=== PATIENT | female | born 1995 | race Asian ===

== ENCOUNTER 2017-06-25 23:02 | Outpatient (CLI) | payer BC ==
[~2017-06-25] VITALS: Ht 152.4 cm; Wt 60.3 kg
[2017-06-25 23:20] VITALS: BP 116/78; PULSE 84; RESP 18
[2017-06-25] MEDS ORDERED: PRENAT PO (23:22)
[2017-06-25] MEDS ORDERED: ACETAMINOPHEN 500 MG TAB PO ONE (23:57)
[2017-06-26 00:25] LABS: ADD UMIC NO; UR ASCORBIC ACID NEGATIVE (NEGATIVE); UR BILIRUBIN (Dip) NEGATIVE (NEGATIVE); UR BLOOD (Dip) NEGATIVE (NEGATIVE); UR CLARITY CLEAR (CLEAR); UR COLOR COLORLESS (YELLOW); UR GLUCOSE (Dip) NEGATIVE (NEGATIVE); UR KETONES (Dip) NEGATIVE (NEGATIVE); UR LEUKOCYTE ESTERASE (Dip) NEGATIVE Leu/ul (NEGATIVE); UR NITRITE (Dip) NEGATIVE (NEGATIVE); UR SPECIFIC GRAVITY (Dip) 1.004 (1.003-1.030); UR TOTAL PROTEIN (Dip) NEGATIVE (NEGATIVE); UR UROBILINOGEN (Dip) NEGATIVE (NEGATIVE)
--- NOTE | 2017-06-26 01:09 | RADRPT ---
PROCEDURE: Limited OB ultrasound CLINICAL INDICATION: Back pain. TECHNIQUE: Sonographic evaluation to assess the cervical length was performed. Transabdominal and transvaginal imaging of the uterus was performed. COMPARISON: None. FINDINGS: A single live intrauterine in breech presentation, head maternal left is identified. The f etal heart rate measures 146 bpm. The cervix is closed, measuring 3.2 cm in length. There is an ante rior placenta, grade 0-1. IMPRESSION: 1. Closed cervix measuring 3.2 cm. RPTAT: HTAR .Samuel Gutierrez MD, MD Date Time Electronically viewed and signed by .Samuel Gutierrez MD, on 06/26/2017 01:09 .R/
--- NOTE | 2017-06-26 02:13 | PN ---
Triage Information Date/Time 06/26/17 Weeks of Gestation 23w6d : 1 Para: 0 Diabetes: none Hypertention: none Additional information constant backpain since 1800 06/25/17 Objective Vital Signs Date Time Temp Pulse Resp B/P Pulse Ox O2 Delivery O2 Flow Rate FiO2 06/25/17 23:20 98.1 84 18 116/78 Room Air Heart Rate: 140's Contractions: None Results/Medications Results 24 hrs Laboratory Tests Test 06/25/17 23:30 Urine Color COLORLESS Urine Clarity CLEAR Urine pH 7.0 Urine Specific [place] 1.004 Urine Ketones NEGATIVE Urine Nitrite NEGATIVE Urine Bilirubin NEGATIVE Urine Urobilinogen NEGATIVE Urine Leukocyte Esterase NEGATIVE Urine Hemoglobin NEGATIVE Urine Glucose NEGATIVE Urine Total Protein NEGATIVE Medications tylenol Imaging Results CVL3.2 Breech PLacenta ant CX closed Assessment/Plan IUP 23w6d backahe resolved plan discharge home with instructions which positions and activities may relieve backahe f/u at clinic [facility] KENNEY WALLACE MD Jun 26, 2017 02:13
--- NOTE | 2017-06-26 06:18 | TRIAGE ---
OB Triage Datetime Report Generated by CPN: 06/26/2017 06:17 Datetime: 06/26/2017 01:57 Stage of : OB Triage Datetime: 06/26/2017 01:30 Stage of : OB Triage Datetime: 06/26/2017 00:50 Stage of : OB Triage FHR Baseline Changes: No Baseline Change Variability: Moderate 6-25 bpm Accelerations: 15X15 Datetime: 06/26/2017 00:00 Labor Evaluation Frequency: none Monitor Mode: External Pattern: Normal: <= 5 Contractions in 10 Minutes Resting Tone [place]: Relaxed Heart Rate FHR Baseline Rate: 145 Monitor Mode: External US FHR Baseline Changes: No Baseline Change Accelerations: 15X15 Decelerations: None Category: Category I Datetime: 06/25/2017 23:40 Stage of : OB Triage Heart Rate FHR Baseline Rate: 150 Monitor Mode: External US FHR Baseline Changes: No Baseline Change Variability: Moderate 6-25 bpm Decelerations: Variable Category: Category II Datetime: 06/25/2017 23:14 Time of Arrival: 06/25/2017 22:56 EGA: 23.5 Arrived By: Wheelchair Arrived From: Home Chief Complaint: c/o back pain beg 1800 Movement: Present Contractions: Denies/Absent Rupture of Membranes: Denies Vaginal Bleeding: None Vaginal Discharge: Denies Recent Sexual Intercouse: Denies Abdominal Trauma: Not Applicable Patient Complaints: Back Pain Time Provider Notified: 06/25/2017 23:40 Provider Notified: Dr Doe Initial Plan: EFM, CVL, UA, TYLENOL Datetime: 06/25/2017 23:09 Stage of : OB Triage Maternal Assessment Level of Consciousness: Fully Conscious Headache: Denies Blurred Vision: No Respiratory Effort: Unlabored Nausea/Vomiting: Denies RUQ Epigastric Pain: Denies Facial Edema: None Labor Evaluation Frequency: placed Monitor Mode: External Resting Tone [place]: Relaxed Monitor Mode: External US Comments: FHT 140 Pain Assessment Pain Scale: 8 Pain Presence: Constant Pain Type: Pressure; Ache Pain Location: Back
== END 2017-06-26 02:05 | disposition home or self-care (01) ==
LOC: OBT 23:02 → L-D 23:04 → OBT 06-26 02:05
PROVIDERS: ATTEND Obstetrics & Gynecology
DX: O26.892 Other specified pregnancy related conditions, second trimester (principal); Z3A.23 23 weeks gestation of pregnancy; M54.9 Dorsalgia, unspecified
CPT/HCPCS: 76817; 81003; G0463

== ENCOUNTER 2017-09-19 02:52 | Inpatient (IN) | payer BC ==
[~2017-09-19] VITALS: Ht 152.4 cm; Wt 65.2 kg
[~2017-09-19 02:52] MED LIST: PRENAT PO
[2017-09-19 03:12] VITALS: Ht 152.4 cm; Wt 65.2 kg
[2017-09-19 03:13] VITALS: BP 134/84; PULSE 72; RESP 18
[2017-09-19] MEDS ORDERED: TERBUTALINE 1 ML ONE (03:31)
[2017-09-19] MEDS: TERBUTALINE 1 MG/ML INJ SC SCH ×2 (03:43→04:16)
[2017-09-19] MEDS ORDERED: LACTATED RINGER'S 1,000 ML IV ONE ×2 (03:45→08:47)
[2017-09-19] MEDS ORDERED: ACETAMINOPHEN 500 MG TAB PO ONE (05:09)
[2017-09-19 05:38] LABS: ADD UMIC YES; UR ASCORBIC ACID NEGATIVE (NEGATIVE); UR BACTERIA FEW /HPF (NONE SEEN); UR BILIRUBIN (Dip) NEGATIVE (NEGATIVE); UR BLOOD (Dip) NEGATIVE (NEGATIVE); UR CLARITY SLIGHTLY CLOUDY (CLEAR); UR COLOR YELLOW (YELLOW); UR GLUCOSE (Dip) NEGATIVE (NEGATIVE); UR KETONES (Dip) NEGATIVE (NEGATIVE); UR LEUKOCYTE ESTERASE (Dip) 1+ Leu/ul (NEGATIVE); UR NITRITE (Dip) NEGATIVE (NEGATIVE); UR RBC 2 /HPF (0-5); UR SPECIFIC GRAVITY (Dip) 1.011 (1.003-1.030); UR SQUAMOUS EPITHELIAL CELL FEW /HPF (FEW); UR TOTAL PROTEIN (Dip) NEGATIVE (NEGATIVE); UR UROBILINOGEN (Dip) NEGATIVE (NEGATIVE)
[2017-09-19] MEDS ORDERED: LACTATED RINGER'S 1,000 ML IV SCH (06:16)
[2017-09-19] MEDS ORDERED: CARBOPROST 250 MCG INJ IM PRN (06:30)
[2017-09-19] MEDS ORDERED: MISOPROSTOL 200 MCG TAB PR PRN (06:30)
[2017-09-19] MEDS ORDERED: BUTORPHANOL 2 MG INJ IV PRN (06:30)
[2017-09-19] MEDS ORDERED: METHYLERGONOVINE 0.2 MG INJ IM PRN (06:30)
[2017-09-19] MEDS ORDERED: OXYTOCIN 30 UNITS/LR 500 ML IV SCH ×2 (06:30)
[2017-09-19] MEDS ORDERED: LIDOCAINE 1% (MPF) 30 ML INJ INJ PRN (06:30)
[2017-09-19] MEDS ORDERED: AMPICILLIN 2 GM/NS (PMX) 100 ML IV ONE (06:30)
[2017-09-19] MEDS ORDERED: OXYTOCIN 30 UNITS/LR 500 ML IV PRN (06:30)
[2017-09-19] MEDS ORDERED: LACTATED RINGER'S 1,000 ML IV PRN (07:00)
--- NOTE | 2017-09-19 07:25 | HP ---
Date/Time of Note Date/Time of Note DATE: 09/19/17 TIME: 07:18 OB - History Hx of Present Free Text/Dictation 21 y.o primigravida at 36weeks with c/o Uterine contractions q5min apart with intact membrane. IV hydration with X2 terbutaline made pain is less but VE revealed 3/80%/-2 from 1/50%/-2 admitted for expectant management GBS unknown Chief Complaint: uterine contractions Estimated Due Date: Oct 17, 2017 : 1 Para: 0 Spontaneous : 0 Therapeutic : 0 Care: Other Ultrasounds: Other Obstetrical Complications: None Medical Complications: None Past Family/Social History * Past Medical, Surgical, Family and Obstetric Histories reviewed from chart. Blood Type: Unknown Rubella: unknown RPR/VDRL: Unknown GBS Status: Unknown HBsAG: Unknown OB Admission Exam Vital Signs Vital Signs Vital Signs Date Time Temp Pulse Resp B/P Pulse Ox O2 Delivery O2 Flow Rate FiO2 09/19/17 03:13 97.6 72 18 134/84 Room Air Physical Exam HEENT: WNL Heart: Rhythm Normal Lungs: Clear, Equal Abdomen: WNL Extremities: Normal Reflexes: Normal Cervical Dilatation: 3cm Effacement: 75% Station: -2 Membranes: Intact Amniotic Fluid: Unevaluable Heart Rate: 140's Accelerations: Accelerations Present Decelerations: No Decelerations Contractions on Admission: < 5 Minutes Apart Intensity: Moderate OB Assessment/Plan Reason for admission: labor Other Assessment: [id number] Plan: Expectant Management KENNEY WALLACE MD Sep 19, 2017 07:25
[2017-09-19 07:31] LABS: BASOPHILS % 0.2 % (0.0-2.0); EOSINOPHILS % 0.3 % (0.0-7.0); HEMATOCRIT 36.5 % (37.0-47.0); HEMOGLOBIN 12.4 g/dl (12.0-16.0); LYMPHOCYTES # 2.1 10^3/ul (0.8-2.9); MEAN CORPUSCULAR HEMOGLOBIN 29.9 pg (29.0-33.0); MEAN PLATELET VOLUME 11.7 fl (7.4-10.4); MONOCYTE # 0.6 10^3/ul (0.3-0.9); MONOCYTES % 5.8 % (0.0-13.0); NEUTROPHIL # 8.1 10^3/ul (1.6-7.5); NEUTROPHILS % 74.2 % (30.0-74.0); PLATELET COUNT 362 10^3/UL (140-415); RED BLOOD COUNT 4.15 10^6/ul (4.20-5.40); RED CELL DISTRIBUTION WIDTH 13.3 % (11.5-14.5); WHITE BLOOD COUNT 10.9 10^3/ul (4.8-10.8)
[2017-09-19 07:53] LABS: INR 0.85; PROTIME 11.6 Sec (12.2-14.2); PT RATIO 0.9
[2017-09-19 07:54] LABS: PARTIAL THROMBOPLASTIN TIME 28.4 Sec (25.0-35.0)
[2017-09-19 07:57] LABS: BARBITURATES NEGATIVE (NEGATIVE); BENZODIAZEPINES NEGATIVE (NEGATIVE); CANNABINOIDS NEGATIVE (NEGATIVE); COCAINE NEGATIVE (NEGATIVE); OPIATES NEGATIVE (NEGATIVE)
[2017-09-19] MEDS ORDERED: CITRIC ACID/NA CITRATE 30 ML CUP ONE (08:41)
[2017-09-19] MEDS ORDERED: ONDANSETRON 4 MG INJ ONE (08:41)
[2017-09-19] MEDS ORDERED: KETOROLAC 30 MG INJ IV PRN (09:00)
[2017-09-19] MEDS ORDERED: morphine 2 MG INJ IV PRN (09:00)
[2017-09-19] MEDS ORDERED: CITRIC ACID/NA CITRATE 30 ML CUP PO ONE (09:00)
[2017-09-19] MEDS ORDERED: NALBUPHINE HCL (10 MG/1 ML) INJ IV PRN (09:00)
[2017-09-19] MEDS ORDERED: FENTAnyl 2MCG/ML-ROPIV 0.2% 100 ML BAG EPI SCH (09:00)
[2017-09-19] MEDS ORDERED: ONDANSETRON 4 MG INJ IV ONE (09:00)
[2017-09-19] MEDS ORDERED: TRIMETHOBENZAMIDE 100 MG/ML VIAL IM PRN (09:00)
[2017-09-19] MEDS ORDERED: NALOXONE (0.4 MG/ML) INJ IV PRN (09:00)
[2017-09-19] MEDS ORDERED: morphine 4 MG/ML VIAL IV PRN (09:00)
[2017-09-19] MEDS ORDERED: DIPHENHYDRAMINE 50 MG INJ IV PRN (09:00)
[2017-09-19] MEDS ORDERED: ONDANSETRON 4 MG INJ IV PRN ×2 (09:00→11:30)
--- NOTE | 2017-09-19 09:57 | LDN ---
Date/Time of Note Date/Time of Note DATE: 09/19/17 TIME: 09:49 Delivery Summary Normal spontaneous vaginal delivery of a viable baby boy (by DR Ty) placenta delivered by Dr. Pacheco inspected complete, peritoneal vaginal inspection no laceration , estimated blood loss 250 cc Weeks of Gestation 36 weeks Placenta Delivered: Spontaneously Meconium: none Episiotomy: No Laceration repair: None Anesthesia type: Epidural Estimated blood loss: 250 Sponge & Needle done & correct: Yes All needle counts correct: Yes Any foreign bodies felt in the: No Problems: Delivery Information Sex Infant Sex: male Apgars 1 Minute: 9 5 Minute: 9 Suctioning Nose & mouth suctioned at jennifer: Yes Delee suction performed: No Umbilical Cord Umbilical cord with: 3 Vessels Cord presentations: nuchal cord Cord Blood was obtained: Yes LOBO PACHECO MD Sep 19, 2017 09:57
[2017-09-19] MEDS ORDERED: OXYCODONE/ACETAMINOPHEN (5/325) TAB PO PRN (10:00)
[2017-09-19] MEDS ORDERED: IBUPROFEN 600 MG TAB PO PRN (10:00)
[2017-09-19] MEDS ORDERED: AMPICILLIN 1 GM/NS (PMX) 50 ML IV SCH (10:30)
[2017-09-19 10:40] VITALS: BP 121/74; PULSE 99; RESP 19
[2017-09-19] MEDS ORDERED: BENZOCAINE 20% 56 ML SPRAY TOP PRN (11:30)
[2017-09-19] MEDS ORDERED: OXYCODONE/ASPIRIN (4.88/325) TAB PO PRN ×2 (11:30)
[2017-09-19] MEDS ORDERED: LANOLIN 7 GM TUBE TOP PRN (11:30)
[2017-09-19] MEDS ORDERED: DIBUCAINE 1% 30 GM OINT PR PRN (11:30)
[2017-09-19] MEDS ORDERED: ACETAMINOPHEN 325 MG TAB PO PRN (11:30)
[2017-09-19] MEDS ORDERED: HYDROCODONE/APAP (5/325) TAB PO PRN ×2 (11:30)
[2017-09-19] MEDS ORDERED: WITCH HAZEL/GLYCERIN PAD PR PRN (11:30)
[2017-09-19 12:00] VITALS: BP 126/87; PULSE 63; RESP 18
[2017-09-19] MEDS: IBUPROFEN 600 MG TAB PO SCH ×2 (12:00→18:28)
[2017-09-19] MEDS: OXYTOCIN 30 UNITS/LR 500 ML IV SCH ×2 (14:08→15:13)
[2017-09-19 16:00] VITALS: BP 118/76; PULSE 83; RESP 18
[2017-09-19 20:05] VITALS: BP 114/71; PULSE 100; RESP 18
[2017-09-19] MEDS: SENNA/DOCUSATE NA (8.6MG/50MG) TAB PO SCH (21:27)
[2017-09-20 00:15] VITALS: BP 109/70; PULSE 98; RESP 18
[2017-09-20] MEDS: IBUPROFEN 600 MG TAB PO SCH ×4 (00:18→18:16)
[2017-09-20 04:50] VITALS: BP 109/74; PULSE 97; RESP 18
[2017-09-20 07:30] VITALS: BP 111/75; PULSE 96; RESP 19
[2017-09-20 07:44] LABS: BASOPHILS % 0.3 % (0.0-2.0); EOSINOPHILS # 0.1 10^3/ul (0.0-0.5); EOSINOPHILS % 0.9 % (0.0-7.0); HEMATOCRIT 31.5 % (37.0-47.0); HEMOGLOBIN 10.5 g/dl (12.0-16.0); LYMPHOCYTES # 1.9 10^3/ul (0.8-2.9); LYMPHOCYTES % 18.6 % (18.0-55.0); MEAN CORPUSCULAR HEMOGLOBIN 28.7 pg (29.0-33.0); MEAN CORPUSCULAR HGB CONC 33.3 g/dl (32.0-37.0); MEAN CORPUSCULAR VOLUME 86.1 fl (72.0-104.0); MEAN PLATELET VOLUME 10.6 fl (7.4-10.4); MONOCYTE # 0.4 10^3/ul (0.3-0.9); MONOCYTES % 4.2 % (0.0-13.0); NEUTROPHIL # 7.8 10^3/ul (1.6-7.5); NEUTROPHILS % 75.4 % (30.0-74.0); PLATELET COUNT 279 10^3/UL (140-415); RED BLOOD COUNT 3.66 10^6/ul (4.20-5.40); RED CELL DISTRIBUTION WIDTH 13.2 % (11.5-14.5); WHITE BLOOD COUNT 10.3 10^3/ul (4.8-10.8)
[2017-09-20] MEDS: SENNA/DOCUSATE NA (8.6MG/50MG) TAB PO SCH ×2 (10:33→20:56)
--- NOTE | 2017-09-20 10:45 | QN ---
Documentation Comment Post normal vaginal delivery day 1 Afebrile Vital signs are stable Abdomen soft uterus firm lochia normal extremity normal Ambulation encouraged, plan of possible a.m. discharge discussed LOBO PACHECO MD Sep 20, 2017 10:45
[2017-09-20] MEDS ORDERED: INFLUENZA VIRUS VACCINE 0.5 ML SYG IM* ONE (13:30)
[2017-09-20 16:00] VITALS: BP 116/65; PULSE 84; RESP 19
[2017-09-20 19:40] VITALS: BP 118/81; PULSE 79; RESP 19
[2017-09-21] MEDS: IBUPROFEN 600 MG TAB PO SCH ×3 (00:34→11:30)
[2017-09-21 04:00] VITALS: BP 115/67; PULSE 88; RESP 18
[2017-09-21 04:05] VITALS: RESP 18
[2017-09-21 08:15] VITALS: BP 123/63; PULSE 72; RESP 19
[2017-09-21] MEDS ORDERED: MEASLES,MUMPS,RUBELLA VACCINE INJ SC* ONE (09:00)
[2017-09-21] MEDS: SENNA/DOCUSATE NA (8.6MG/50MG) TAB PO SCH (09:18)
--- NOTE | 2017-09-21 09:35 | PD.PPDC ---
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
--- NOTE | 2017-09-21 09:37 | DS ---
Date/Time of Note Date/Time of Note DATE: 09/21/17 TIME: 09:35 Discharge Summary Admission/Discharge Info Admit Date/Time Sep 19, 2017 at 06:27 Discharge Date/Time September 21 9:30 AM Discharge Diagnosis Post normal vaginal delivery day 2 Patient Condition: Good Procedures Normal vaginal delivery Hx of Present Illness Term Hospital Course Satisfactory uneventful Home Meds Reported Medications Multivit/Min/Fol Ac/Iron/Pren* ( S*) 1 Tab Tab, 1 TAB PO DAILY, TAB 06/25/17 Follow-up Plan instruction given recommended to make appointment to be seen at the clinic in 2 weeks Primary Care Provider Claire Beltre Time spent on discharge: < 30 minutes LOBO PACHECO MD Sep 21, 2017 09:37
[2017-09-22 13:16] LABS: RUBELLA ANTIBODY - IGG 3.34 index
== END 2017-09-21 14:00 | disposition home or self-care (01) | DRG 775 ==
LOC: OBT 02:52 → L-D 02:55 → OBT 06:24 → L-D 06:27 → PP1 11:09
PROVIDERS: ADMIT Obstetrics & Gynecology; ATTEND Obstetrics & Gynecology
PROC: 10E0XZZ Delivery of Products of Conception, External Approach (ICD-10-PCS; principal; 2017-09-19)
DX: O80 Encounter for full-term uncomplicated delivery (principal); Z37.0 Single live birth; Z3A.36 36 weeks gestation of pregnancy
CPT/HCPCS: 36415; 80307; 81001; 85025; 85610; 85730; 86592; 86762; 86900; 86901; 87340; 90686; 96360; 96361; 96372; 99464; G0463; J0290; J0595; J2405; J2590; J3105; J7120

== ENCOUNTER 2019-01-18 20:14 | Emergency (ER) | payer BC, OTHER ==
[~2019-01-18] VITALS: Ht 152.4 cm; Wt 58.5 kg
[2019-01-18 20:41] VITALS: Ht 152.4 cm; Wt 58.5 kg
[2019-01-19] MEDS ORDERED: ACET500C5 PO (02:08)
[2019-01-19] MEDS ORDERED: NITR-58 PO (02:08)
[2019-01-19] MEDS ORDERED: ONDA4TAB14 PO (02:10)
[2019-01-19 02:27] VITALS: BP 117/77; PULSE 78; RESP 18
--- NOTE | 2019-01-20 22:07 | ERD ---
ER Documentation Chief Complaint Chief Complaint AP, NAUSEA, DIARRHEA X'S 3 DAYS HPI 23-year-old female patient with no significant past medical history presents to ED complaining of abdominal pain, nausea, diarrhea started about 3 days ago. Patient reports that she has had a few episodes of non-mucoid nonbloody diarrhea. Denies any vomiting, chest pain, shortness of breath, fever, chills, dysuria, urgency, frequency and hematuria. Patient reports that her last menstruation was on January 09, 2019. ROS All systems reviewed and are negative except as per history of present illness. Medications Home Meds Active Scripts Ondansetron (Ondansetron Odt) 4 Mg Tab.rapdis, 4 MG PO Q6H PRN for NAUSEA AND/OR VOMITING, #10 TAB Prov:YASMIN HUMPHREY PA-C 01/19/19 Acetaminophen* (Tylophen*) 500 Mg Capsule, 1 CAP PO Q6H PRN for PAIN AND OR ELEVATED TEMP, #20 CAP Prov:YASMIN HUMPHREY PA-C 01/19/19 Nitrofurantoin Monohyd Macrocr* (Macrobid*) 100 Mg Capsr, 100 MG PO BID for 7 Days, CAP Prov:YASMIN HUMPHREY-C 01/19/19 Reported Medications Multivit/Min/Fol Ac/Iron/Pren* ( S*) 1 Tab Tab, 1 TAB PO DAILY, TAB 06/25/17 Allergies Allergies: Coded Allergies: No Known Allergy (Unverified , 09/19/17) PMhx/Soc Medical and Surgical Hx: pt denies Medical Hx, pt denies Surgical Hx Hx Alcohol Use: No Hx Substance Use: No Hx Tobacco Use: No Smoking Status: Never smoker FmHx Family History: No diabetes, No coronary disease Physical Exam Vitals Vital Signs Date Temp Pulse Resp B/P (MAP) Pulse Ox O2 O2 Flow FiO2 Time Delivery Rate 01/19/19 98.8 78 18 117/77 100 Room Air 02:27 (90) 01/18/19 98.0 120 18 133/76 100 20:41 (95) Physical Exam Const: [id number], well-nourished. In no acute distress. Head: Atraumatic, normocephalic Eyes: Normal Conjunctiva without injection. No purulent discharge. ENT: Normal external ear, nose. Moist oropharynx without tonsillar exudates. Non-erythematous pharynx. Uvula midline. No drooling. No trismus. Neck: No cervical midline tenderness. Full range of motion. No meningismus. No cervical lymphadenopathy. No JVD. Resp: Clear to auscultation bilaterally. No wheezing, rhonchi, rales, or crackles. No accessory muscle use. No retractions. Cardio: Regular rate and rhythm. No murmurs, rubs or gallops. Abd: Soft, nontender, non distended. Normal bowel sounds. No palpable masses. No rebound tenderness. No guarding. Negative McBurney's point. Negative psoas sign. Negative obturator sign. Skin: No petechiae or rashes Back: No midline tenderness. No CVA tenderness. Ext: No cyanosis, or edema. Neur: Awake and alert. Normal gait. Normal coordination. Psych: Normal Mood and Affect Result Diagram: 01/19/195001/19/1950 Results 24 hrs Laboratory Tests Test 01/19/19 00:48 01/19/19 00:50 01/19/19 00:51 Urine Color YELLOW Urine Clarity SLIGHTLY CLOUDY Urine pH 6.0 Urine Specific [place] 1.020 Urine Ketones TRACE mg/dL Urine Nitrite NEGATIVE mg/dL Urine Bilirubin NEGATIVE mg/dL Urine Urobilinogen NEGATIVE mg/dL Urine Leukocyte Esterase 1+ Laura/ul Urine Microscopic RBC 1 /HPF Urine Microscopic WBC 4 /HPF Urine Squamous Epithelial Cells FEW /HPF Urine Hemoglobin 3+ mg/dL Urine Glucose NEGATIVE mg/dL Urine Total Protein NEGATIVE mg/dl POC Beta HCG, Qualitative NEGATIVE White Blood Count 6.0 10^3/ul Red Blood Count 4.63 10^6/ul Hemoglobin 12.8 g/dl Hematocrit 38.5 % Mean Corpuscular Volume 83.2 fl Mean Corpuscular Hemoglobin 27.6 pg Mean Corpuscular 33.2 g/dl Hemoglobin Concent Red Cell Distribution Width 13.0 % Platelet Count 301 10^3/UL Mean Platelet Volume 10.9 fl Immature Granulocytes % 0.200 % Neutrophils % 52.7 % Lymphocytes % 38.2 % Monocytes % 7.8 % Eosinophils % 0.8 % Basophils % 0.3 % Nucleated Red Blood Cells % 0.0 /100WBC Immature Granulocytes # 0.010 10^3/ul Neutrophils # 3.2 10^3/ul Lymphocytes # 2.3 10^3/ul Monocytes # 0.5 10^3/ul Eosinophils # 0.1 10^3/ul Basophils # 0.0 10^3/ul Nucleated Red Blood Cells # 0.0 10^3/ul Sodium Level 141 mmol/L Potassium Level 3.7 mmol/L Chloride Level 100 mmol/L Carbon Dioxide Level 25 mmol/L Anion Gap 16 Blood Urea Nitrogen 19 mg/dl Creatinine 0.73 mg/dl Est Glomerular Filtrat > 60 mL/min Rate mL/min Glucose Level 101 mg/dl Calcium Level 9.7 mg/dl Total Bilirubin 0.1 mg/dl Direct Bilirubin 0.00 mg/dl Indirect Bilirubin 0.1 mg/dl Aspartate Amino 18 IU/L Transf (AST/SGOT) Alanine 18 IU/L Aminotransferase (ALT/SGPT) Alkaline Phosphatase 71 IU/L Total Protein 8.5 g/dl Albumin 4.6 g/dl Globulin 3.90 g/dl Albumin/Globulin Ratio 1.17 Lipase 95 U/L Procedures/MDM 23-year-old female patient with no significant past medical history presents to ED complaining of abdominal pain, diarrhea, nausea that started 3 days ago. Patient is afebrile and nontoxic-appearing. Patient was further worked up with CBC, CMP, lipase, UA, urine . Patient's pain and symptoms have improved after treatment with 1 L normal saline. CBC: No leukocytosis. No e/o of systemic infection. No e/o anemia. CMP: No e/o severe acidosis, alkalosis, renal failure, diabetic ketoacidosis, liver disease Lipase within normal limits. Urine: 1+ leukocyte esterase, no nitrites, 3+ hematuria. Urine : Negative Patient symptoms are likely secondary to viral etiology. Patient has 1+ leukocyte esterase. Patient will also be treated for urinary tract infection. Low suspicion for ectopic , ovarian torsion, gastritis, GERD, peptic ulcer disease, cholecystitis, choledocholithiasis, cholangitis, pancreatitis, appendicitis, bowel obstruction, ileus, volvulus, nephrolithiasis, pyelonephritis, hepatitis, perforated viscus, diverticulitis, strangulated/incarcerated hernia, DKA, acute abdomen, mesenteric ischemia or other emergent conditions. Discharge medications: Macrobid, Tylenol, Zofran Follow up with primary care physician in 1-2 days for referral to family resource management professor. Instructed patient to return to the ED sooner for any w orsening symptoms. Patient's questions were answered. Patient understood and agreed with discharge plan. Patient discharged stable. Departure Diagnosis: Primary Impression: Abdominal pain Abdominal location: unspecified location Qualified Codes: R10.9 - Unspecified abdominal pain Condition: Stable Patient Instructions: Urinary Tract Infections in Women, Abdominal Pain, Unknown Cause, (Female) Referrals: [facility] YOU HAVE RECEIVED A MEDICAL SCREENING EXAM AND THE RESULTS INDICATE THAT YOU DO NOT HAVE A CONDITION THAT REQUIRES URGENT TREATMENT IN THE EMERGENCY DEPARTMENT. FURTHER EVALUATION AND TREATMENT OF YOUR CONDITION CAN WAIT UNTIL YOU ARE SEEN IN YOUR DOCTORS OFFICE WITHIN THE NEXT 1-2 DAYS. IT IS YOUR RESPONSIBILITY TO MAKE AN APPOINTMENT FOR FOLOW-UP CARE. IF YOU HAVE A PRIMARY DOCTOR --you should call your primary doctor and schedule an appointment IF YOU DO NOT HAVE A PRIMARY DOCTOR YOU CAN CALL OUR PHYSICIAN REFERRAL HOTLINE AT IF YOU CAN NOT AFFORD TO SEE A PHYSICIAN YOU CAN CHOSE FROM THE FOLLOWING [facility] [address] [facility] [address] [facility]. [place] [address] [facility] [address] [facility] [address] [facility] [facility] [address] [facility]. [facility] YOU HAVE RECEIVED A MEDICAL SCREENING EXAM AND THE RESULTS INDICATE THAT YOU DO NOT HAVE A CONDITION THAT REQUIRES URGENT TREATMENT IN THE EMERGENCY DEPARTMENT. FURTHER EVALUATION AND TREATMENT OF YOUR CONDITION CAN WAIT UNTIL YOU ARE SEEN IN YOUR DOCTORS OFFICE WITHIN THE NEXT 1-2 DAYS. IT IS YOUR RESPONSIBILITY TO MAKE AN APPOINTMENT FOR FOLOW-UP CARE. IF YOU HAVE A PRIMARY DOCTOR --you should call your primary doctor and schedule and appointment IF YOU DO NOT HAVE A PRIMARY DOCTOR YOU CAN CALL OUR PHYSICIAN REFERRAL HOTLINE AT . IF YOU CAN NOT AFFORD TO SEE A PHYSICIAN YOU CAN CHOSE FROM THE FOLLOWING [facility]: [facility] [address] [place] [address] [facility] [address] [place] [address] [facility] [address] [place] [address] [facility] Additional Instructions: Return to the ED in 8-12 hours for a reexamination of the abdomen. See the doctor sooner or return here if your condition worsens before your appointment time. YASMIN HUMPHREY PA-C Jan 20, 2019 22:03
== END 2019-01-19 02:30 | disposition home or self-care (01) ==
LOC: FTE 20:14
DX: R10.9 Unspecified abdominal pain (principal); R11.0 Nausea
CPT/HCPCS: 36415; 80053; 81001; 81025; 83690; 85025; 99283